=== PATIENT | female | born 1995 | race African-American/Black ===

== ENCOUNTER 2020-08-05 07:43 | Emergency (ER) | payer OTHER | END 2020-08-05 08:08 | disposition home or self-care (01) | LOC: CSHERS 07:43 | DX: J00 Acute nasopharyngitis [common cold] (principal); I10 Essential (primary) hypertension; E66.9 Obesity, unspecified | CPT/HCPCS: 99283 ==

== ENCOUNTER 2020-08-05 13:20 | Emergency (ER) | payer OTHER | END 2020-08-05 14:50 | disposition home or self-care (01) | LOC: CSHERS 13:20 | DX: R11.2 Nausea with vomiting, unspecified (principal); T36.3X5A Adverse effect of macrolides, initial encounter; E66.9 Obesity, unspecified; I10 Essential (primary) hypertension | CPT/HCPCS: 99283 ==

== ENCOUNTER 2020-11-27 19:01 | Emergency (ER) | payer OTHER ==
[2020-11-27] MEDS ORDERED: Metoclopramide HCl 10 MG/2 ML VIAL ONE (21:27)
[2020-11-27 21:57] LABS: #Eosinphils 0.1 10x3/uL (0.0-0.5); #Monocytes 0.4 10x3/uL (0.0-1.1); #Neutrophils 5.5 10x3/uL (1.5-8.4); %Basophils 0.4 % (0.0-2.0); %Eosinophils 0.6 % (0.0-6.0); %Lymphocytes 22.9 % (18.0-47.0); %Monocytes 5.4 % (0.0-10.0); %Neutrophils 70.3 % (40.0-75.0); Mean Corpuscular HGB CONC 30.1 g/dL (32.0-36.0); Mean Corpuscular Hemoglobin 22.2 pg (27.0-33.0); Mean Corpuscular Volume 73.6 fl (81.6-98.3); Mean Platelet Volume 10.2 fl (7.4-10.4); Platelet Count 432 10x3/uL (150-450); RBC Distribution Width 15.1 % (11.5-14.5); Red Blood Cell (RBC) Count 4.51 10x6/uL (3.90-5.03); White Blood Cell (WBC) Count 7.8 10x3/uL (3.5-10.5)
[2020-11-27 22:18] LABS: ALT (SGPT) 9 U/L (8-55); AST (SGOT) 15 U/L (5-34); Albumin 3.9 g/dL (3.5-5.0); Alkaline Phosphatase 63 U/L (40-110); Anion Gap 13 mmol/L (10-20); BUN (Urea Nitrogen) 11 mg/dL (7.0-18.7); Bilirubin, Total 0.3 mg/dL (0.2-1.2); Calc. Creatinine Clearance 0 mL/min (70-130); Carbon Dioxide 21 mmol/L (22-29); Chloride 104 mmol/L (98-107); Globulin 3.7 g/dL (2.4-3.5); Glucose 97 mg/dL (70-105); Lipase 28 U/L (8-78); Potassium 3.7 mmol/L (3.5-5.1); Protein, Total 7.6 g/dL (6.0-8.3); Sodium 134 mmol/L (136-145)
== END 2020-11-27 23:43 | disposition home or self-care (01) ==
LOC: CSHERS 19:01
DX: O21.0 Mild hyperemesis gravidarum (principal); O10.911 Unspecified pre-existing hypertension complicating pregnancy, first trimester; Z3A.01 Less than 8 weeks gestation of pregnancy
CPT/HCPCS: 80053; 83690; 85025; 99283; J2765

== ENCOUNTER 2021-03-13 16:55 | Emergency (ER) | payer OTHER ==
[2021-03-13] MEDS ORDERED: cefTRIAXone\\ROCEPHIN 500 MG VIAL ONE (17:26)
[2021-03-13] MEDS ORDERED: Ibuprofen 200 MG TAB ONE (17:27)
[2021-03-13] MEDS ORDERED: Sterile Water 10 ML ONE (17:28)
== END 2021-03-13 18:00 | disposition home or self-care (01) ==
LOC: CSHERS 16:55
DX: N89.8 Other specified noninflammatory disorders of vagina (principal); M79.641 Pain in right hand; D64.9 Anemia, unspecified
CPT/HCPCS: 96372; J0696

== ENCOUNTER 2021-05-10 12:15 | Emergency (ER) | payer OTHER ==
[2021-05-10 13:38] LABS: Bilirubin Neg (Negative); Blood, Urine Negative (Negative); Clarity Clear (Clear); Glucose, Urine (Dipstick) Normal (Negative); Ketone, Urine Negative (Negative); Leukocyte Negative (Negative); Nitrite Negative (Negative); Protein, Urine (Dipstick) Negative (Neg-Trace); Specific Gravity, Urine 1.015 (1.002-1.036); Urobilinogen Normal mg/dL (Less than 2)
[2021-05-10 13:39] LABS: Pregnancy Test - Urine (BHCG) Negative (Negative); Pregu Control Background? CLEAR/WHITE (CLR/WHITE); Pregu Control Bar Appear? YES (CONTROL BAR); Specific Gravity 1.015 (1.002-1.036)
[2021-05-10] MEDS ORDERED: metroNIDAZOLE 500 MG TAB ONE (13:58)
[2021-05-10] MEDS ORDERED: cefTRIAXone\\ROCEPHIN 500 MG VIAL ONE (13:58)
[2021-05-10] MEDS ORDERED: Lidocaine 1% (PF) 30 ML VIAL ONE (14:01)
[2021-05-10] MEDS ORDERED: Doxycycline 100 MG CAP PO SCH (14:15)
== END 2021-05-10 14:56 | disposition home or self-care (01) ==
LOC: CSHERS 12:15
DX: A54.9 Gonococcal infection, unspecified (principal); N76.0 Acute vaginitis; D64.9 Anemia, unspecified
CPT/HCPCS: 81003; 81025; 96372; 99284; J0696; J2001

== ENCOUNTER 2021-08-30 15:14 | Emergency (ER) | payer OTHER ==
[2021-08-30] MEDS ORDERED: Acetaminophen 500 MG TAB ONE (16:17)
== END 2021-08-30 18:08 | disposition home or self-care (01) ==
LOC: CSHERS 15:14
DX: T84.213A Breakdown (mechanical) of internal fixation device of bones of foot and toes, initial encounter (principal); S60.221A Contusion of right hand, initial encounter; D64.9 Anemia, unspecified; W01.198A Fall on same level from slipping, tripping and stumbling with subsequent striking against other object, initial encounter

== ENCOUNTER 2021-09-03 09:06 | Emergency (ER) | payer OTHER | END 2021-09-03 09:49 | disposition home or self-care (01) | LOC: CSHERS 09:06 | DX: S80.12XA Contusion of left lower leg, initial encounter (principal); W01.0XXA Fall on same level from slipping, tripping and stumbling without subsequent striking against object, initial encounter; Y92.512 Supermarket, store or market as the place of occurrence of the external cause; D64.9 Anemia, unspecified | CPT/HCPCS: 99283 ==

== ENCOUNTER 2021-12-09 07:39 | Emergency (ER) | payer OTHER ==
[2021-12-09 08:16] LABS: Bilirubin 1+ (Negative); Blood, Urine Negative (Negative); Clarity Slightly Cloudy (Clear); Glucose, Urine (Dipstick) Normal (Negative); Ketone, Urine Negative (Negative); Leukocyte Negative (Negative); Nitrite Negative (Negative); Protein, Urine (Dipstick) 30 mg/dl (Neg-Trace); Specific Gravity, Urine 1.025 (1.002-1.036)
[2021-12-09 08:18] LABS: Pregnancy Test - Urine (BHCG) Negative (Negative); Pregu Control Background? CLEAR/WHITE (CLR/WHITE); Pregu Control Bar Appear? YES (CONTROL BAR); Specific Gravity 1.025 (1.002-1.036)
[2021-12-09 08:36] LABS: Bacteria/HPF 2+ HPF (None Seen); Mucous/LPF 1+ LPF (<2+); RBC/HPF 0-3 HPF (0-3); WBC/HPF 0-3 HPF (0-3)
[2021-12-09 09:20] LABS: #Eosinphils 0.4 10x3/uL (0.0-0.5); #Monocytes 0.3 10x3/uL (0.0-1.1); #Neutrophils 2.7 10x3/uL (1.5-8.4); %Basophils 0.6 % (0.0-2.0); %Eosinophils 9.1 % (0.0-6.0); %Lymphocytes 25.9 % (18.0-47.0); %Monocytes 5.9 % (0.0-10.0); %Neutrophils 58.3 % (40.0-75.0); Hemoglobin 9.9 g/dL (12.0-15.5); Mean Corpuscular HGB CONC 30.7 g/dL (32.0-36.0); Mean Corpuscular Hemoglobin 23.1 pg (27.0-33.0); Mean Corpuscular Volume 75.5 fl (81.6-98.3); Mean Platelet Volume 9.7 fl (7.4-10.4); Platelet Count 420 10x3/uL (150-450); RBC Distribution Width 14.8 % (11.5-14.5); Red Blood Cell (RBC) Count 4.28 10x6/uL (3.90-5.03); White Blood Cell (WBC) Count 4.7 10x3/uL (3.5-10.5)
[2021-12-09] MEDS ORDERED: Lidocaine 1% (PF) 30 ML VIAL ONE (09:27)
[2021-12-09] MEDS ORDERED: cefTRIAXone\\ROCEPHIN 1 GM VIAL ONE (09:27)
[2021-12-09 09:43] LABS: ALT (SGPT) 8 U/L (8-55); AST (SGOT) 14 U/L (5-34); Albumin 3.6 g/dL (3.5-5.0); Alkaline Phosphatase 65 U/L (40-110); Anion Gap 10 mmol/L (10-20); BUN (Urea Nitrogen) 15 mg/dL (7.0-18.7); Bilirubin, Total 0.3 mg/dL (0.2-1.2); Calc. Creatinine Clearance 0 mL/min (70-130); Calcium 8.8 mg/dL (7.8-10.44); Carbon Dioxide 25 mmol/L (22-29); Chloride 107 mmol/L (98-107); Estimated GFR 111; Globulin 3.3 g/dL (2.4-3.5); Glucose 104 mg/dL (70-105); Lipase 33 U/L (8-78); Potassium 3.7 mmol/L (3.5-5.1); Protein, Total 6.9 g/dL (6.0-8.3); Sodium 138 mmol/L (136-145)
[2021-12-10 17:11] LABS: Chlamydia by PCR Not Detected (NotDetected); GC by PCR Not Detected (NotDetected)
== END 2021-12-09 09:35 | disposition home or self-care (01) ==
LOC: CSHERS 07:39
DX: N72 Inflammatory disease of cervix uteri (principal)
CPT/HCPCS: 36415; 80053; 81003; 81015; 81025; 83690; 85025; 87480; 87491; 87510; 87591; 87660; 96372; 99283; J0696; J2001

== ENCOUNTER 2022-03-22 14:14 | Emergency (ER) | payer OTHER | END 2022-03-22 14:35 | disposition home or self-care (01) | LOC: CSHERS 14:14 | DX: R11.2 Nausea with vomiting, unspecified (principal); F19.10 Other psychoactive substance abuse, uncomplicated | CPT/HCPCS: 99283 ==

== ENCOUNTER 2022-05-01 01:17 | Emergency (ER) | payer OTHER ==
[2022-05-01 02:03] LABS: Bilirubin Neg (Negative); Blood, Urine Negative (Negative); Clarity Clear (Clear); Glucose, Urine (Dipstick) Normal (Negative); Ketone, Urine Negative (Negative); Leukocyte Negative (Negative); Nitrite Negative (Negative); Pregu Control Background? CLEAR/WHITE (CLR/WHITE); Pregu Control Bar Appear? YES (CONTROL BAR); Protein, Urine (Dipstick) Negative (Neg-Trace); Specific Gravity 1.015 (1.002-1.036); Specific Gravity, Urine 1.015 (1.005-1.030); pH, Urine 6.5 (5.0-9.0)
[2022-05-01 02:05] LABS: Pregnancy Test - Urine (BHCG) Negative (Negative)
[2022-05-01] MEDS ORDERED: Ketorolac Tromethamine 30 MG/ML VIAL ONE (02:40)
[2022-05-01 03:16] LABS: #Basophils 0.1 10x3/uL (0.0-0.2); #Eosinphils 0.1 10x3/uL (0.0-0.5); #Monocytes 0.5 10x3/uL (0.0-1.1); #Neutrophils 4.3 10x3/uL (1.5-8.4); %Basophils 0.8 % (0.0-2.0); %Eosinophils 1.5 % (0.0-6.0); %Lymphocytes 23.6 % (18.0-47.0); %Monocytes 7.1 % (0.0-10.0); %Neutrophils 66.7 % (40.0-75.0); Hemoglobin 9.9 g/dL (12.0-15.5); Mean Corpuscular HGB CONC 31.7 g/dL (32.0-36.0); Mean Corpuscular Volume 75.7 fl (81.6-98.3); Mean Platelet Volume 9.8 fl (7.4-10.4); Platelet Count 445 10x3/uL (150-450); RBC Distribution Width 14.6 % (11.5-14.5); Red Blood Cell (RBC) Count 4.12 10x6/uL (3.90-5.03); White Blood Cell (WBC) Count 6.5 10x3/uL (3.5-10.5)
[2022-05-01 03:34] LABS: ALT (SGPT) 9 U/L (8-55); AST (SGOT) 10 U/L (5-34); Albumin 3.8 g/dL (3.5-5.0); Alkaline Phosphatase 60 U/L (40-110); Anion Gap 12 mmol/L (10-20); BUN (Urea Nitrogen) 16 mg/dL (7.0-18.7); Bilirubin, Total 0.2 mg/dL (0.2-1.2); Calc. Creatinine Clearance 0 mL/min (70-130); Calcium 9.3 mg/dL (7.8-10.44); Carbon Dioxide 24 mmol/L (22-29); Chloride 107 mmol/L (98-107); Estimated GFR 103; Globulin 3.4 g/dL (2.4-3.5); Glucose 108 mg/dL (70-105); Lipase 46 U/L (8-78); Potassium 4.4 mmol/L (3.5-5.1); Protein, Total 7.2 g/dL (6.0-8.3); Sodium 139 mmol/L (136-145)
== END 2022-05-01 03:53 | disposition home or self-care (01) ==
LOC: CSHERS 01:17
DX: R10.9 Unspecified abdominal pain (principal)
CPT/HCPCS: 80053; 81003; 81025; 83690; 85025; 96372; 99284; J1885

== ENCOUNTER 2022-07-09 12:01 | Emergency (ER) | payer OTHER ==
[2022-07-09 12:27] LABS: Bilirubin Neg (Negative); Blood, Urine 50 (Negative); Clarity Slightly Cloudy (Clear); Glucose, Urine (Dipstick) Normal (Negative); Ketone, Urine Negative (Negative); Leukocyte 100 (Negative); Nitrite Negative (Negative); Protein, Urine (Dipstick) 30 mg/dl (Neg-Trace); Urobilinogen Normal mg/dL (Less than 2)
[2022-07-09 12:29] LABS: Pregnancy Test - Urine (BHCG) Negative (Negative); Pregu Control Background? CLEAR/WHITE (CLR/WHITE); Pregu Control Bar Appear? YES (CONTROL BAR)
[2022-07-09 12:46] LABS: Bacteria/HPF 2+ HPF (None Seen); Squamous Epithelial 0-3 HPF (0-3); WBC/HPF 21-50 HPF (0-3)
[2022-07-09 12:48] LABS: Mucous/LPF 2+ LPF (<2+)
[2022-07-09] MEDS ORDERED: cefTRIAXone (ROCEPHIN) 500 MG VIAL ONE (13:18)
[2022-07-09 22:14] LABS: Chlamydia by PCR, Vaginal Swab Not Detected (NotDetected); GC by PCR, Vaginal Swab Not Detected (NotDetected); Tric.vaginalis PCR,Vaginal Sw DETECTED (NotDetected)
== END 2022-07-09 13:23 | disposition home or self-care (01) ==
LOC: CSHERS 12:01
DX: N30.00 Acute cystitis without hematuria (principal); R30.0 Dysuria
CPT/HCPCS: 81003; 81015; 81025; 87491; 87591; 87661; 96372; 99284; J0696

== ENCOUNTER 2023-01-04 11:13 | Emergency (ER) | payer OTHER ==
[2023-01-04 12:00] LABS: #Eosinphils 0.1 10x3/uL (0.0-0.5); #Monocytes 0.3 10x3/uL (0.0-1.1); #Neutrophils 2.8 10x3/uL (1.5-8.4); %Basophils 0.6 % (0.0-2.0); %Eosinophils 2.6 % (0.0-6.0); %Lymphocytes 29.7 % (18.0-47.0); %Monocytes 6.2 % (0.0-10.0); %Neutrophils 60.7 % (40.0-75.0); Hematocrit 34.8 % (34.9-44.5); Hemoglobin 10.8 g/dL (12.0-15.5); Mean Corpuscular Hemoglobin 24.7 pg (27.0-33.0); Mean Corpuscular Volume 79.5 fl (81.6-98.3); Mean Platelet Volume 10.3 fl (7.4-10.4); Platelet Count 450 10x3/uL (150-450); RBC Distribution Width 15.1 % (11.5-14.5); Red Blood Cell (RBC) Count 4.38 10x6/uL (3.90-5.03); White Blood Cell (WBC) Count 4.7 10x3/uL (3.5-10.5)
[2023-01-04 12:10] LABS: BHCG - Serum POSITIVE (NEGATIVE); Pregs Control Background? CLEAR/WHITE (CLR/WHITE); Pregs Control Bar Appear? YES (CONTROL BAR)
[2023-01-04 12:17] LABS: ALT (SGPT) 10 U/L (8-55); AST (SGOT) 15 U/L (5-34); Albumin 3.7 g/dL (3.5-5.0); Alkaline Phosphatase 55 U/L (40-110); Anion Gap 10 mmol/L (10-20); BUN (Urea Nitrogen) 8 mg/dL (7.0-18.7); Bilirubin, Total 0.3 mg/dL (0.2-1.2); Calc. Creatinine Clearance 0 mL/min (70-130); Carbon Dioxide 24 mmol/L (22-29); Chloride 106 mmol/L (98-107); Estimated GFR 105; Globulin 3.3 g/dL (2.4-3.5); Glucose 102 mg/dL (70-105); Lipase 33 U/L (8-78); Potassium 3.3 mmol/L (3.5-5.1); Sodium 137 mmol/L (136-145)
== END 2023-01-04 13:54 | disposition home or self-care (01) ==
LOC: CSHERS 11:13
DX: O99.891 Other specified diseases and conditions complicating pregnancy (principal); R10.9 Unspecified abdominal pain; Z3A.01 Less than 8 weeks gestation of pregnancy
CPT/HCPCS: 36415; 76856; 80053; 83690; 84702; 84703; 85025

== ENCOUNTER 2023-08-29 08:54 | Inpatient (IN) | payer OTHER ==
[2023-08-29] MEDS ORDERED: Oxytocin 30 units/NS 500 ML 500 ML IV SCH (10:42)
[2023-08-29] MEDS ORDERED: Promethazine HCl 25 MG/ML VIAL IM PRN ×3 (10:42→18:33)
[2023-08-29] MEDS ORDERED: Diphenoxylate HCl/Atropine Tablet PO PRN (10:42)
[2023-08-29] MEDS ORDERED: Tranexamic Acid 1,000 MG/10 ML VIAL IVP PRN (10:42)
[2023-08-29] MEDS ORDERED: hydrALAZINE 20 MG/ML VIAL SLOW IVP PRN ×2 (10:42→18:33)
[2023-08-29] MEDS ORDERED: Famotidine/PF 20 mg/2ml Vial SLOW IVP PRN (10:42)
[2023-08-29] MEDS ORDERED: Ondansetron PF 4 MG/2 ML Vial IVP PRN ×4 (10:42→18:33)
[2023-08-29] MEDS ORDERED: Bicitra 30 ML UDCUP PO PRN (10:42)
[2023-08-29] MEDS ORDERED: Misoprostol 200 MCG TAB PR PRN (10:42)
[2023-08-29] MEDS ORDERED: Carboprost 250 MCG/ML AMP IM PRN (10:42)
[2023-08-29 10:44] VITALS: BMI 53.8
[2023-08-29] MEDS: Lactated Ringer's 1,000 ML IV SCH (11:06)
[2023-08-29 11:29] LABS: Hematocrit 34.6 % (34.9-44.5); Hemoglobin 11.2 g/dL (12.0-15.5); Mean Corpuscular HGB CONC 32.4 g/dL (32.0-36.0); Mean Corpuscular Hemoglobin 26.5 pg (27.0-33.0); Mean Corpuscular Volume 81.8 fl (81.6-98.3); Mean Platelet Volume 10.5 fl (7.4-10.4); Platelet Count 320 10x3/uL (150-450); RBC Distribution Width 18.5 % (11.5-14.5); Red Blood Cell (RBC) Count 4.23 10x6/uL (3.90-5.03); White Blood Cell (WBC) Count 7.8 10x3/uL (3.5-10.5)
[2023-08-29 12:00] LABS: HBsAg Index 0.19 S/CO (0-0.99); Hep B Surf Ag - L&D Non-Reactive S/CO (NonReactive)
[2023-08-29 12:01] LABS: Syphilis Antibody Nonreactive (Nonreactive); Syphilis Antibody Index 0.09 S/CO (<1.00 Non-Reactive)
[2023-08-29] MEDS ORDERED: Naloxone HCl 0.4 mg/ml Vial IVP PRN ×2 (13:44)
[2023-08-29] MEDS ORDERED: Ketorolac Tromethamine 30 MG (1 mL) VIAL IVP PRN (13:44)
[2023-08-29] MEDS ORDERED: Meperidine HCl/PF 25 MG (1 mL) VIAL SLOW IVP PRN (13:44)
[2023-08-29] MEDS ORDERED: fentaNYL 50 mcg/mL 1 mL Vial SLOW IVP PRN (13:44)
[2023-08-29] MEDS ORDERED: Moisturizing Cream (Eucerin) 113 GM JAR TOP PRN (13:44)
[2023-08-29] MEDS ORDERED: Morphine 4 MG/ML VIAL SLOW IVP PRN (13:44)
[2023-08-29] MEDS ORDERED: Naloxone HCl 0.4 mg/ml Vial IV PRN (13:44)
[2023-08-29] MEDS ORDERED: diphenhydrAMINE 50 MG/ML VIAL IVP PRN (13:44)
[2023-08-29] MEDS ORDERED: Communication Order-Pharmacy FS SCH (13:45)
[2023-08-29] MEDS ORDERED: Ketorolac Tromethamine 30 MG (1 mL) VIAL IVP SCH (13:45)
[2023-08-29] MEDS: diphenhydrAMINE 50 MG/ML VIAL ONE (14:53)
[2023-08-29] MEDS ORDERED: Lanolin Ointment 7 GM TUBE TOP PRN (18:33)
[2023-08-29] MEDS ORDERED: diphenhydrAMINE 25 MG CAP PO PRN (18:33)
[2023-08-29] MEDS ORDERED: Bisacodyl 10 MG SUPP PR PRN (18:33)
[2023-08-29] MEDS: Ondansetron PF 4 MG/2 ML Vial ONE ×2 (18:40→18:42)
[2023-08-29] MEDS: Dexamethasone 4 mg/ml Vial ONE (18:40)
[2023-08-29] MEDS: CEFAZOLIN 3 GM, Admixture Fee 1 EACH in Sodium Chloride 0.9% 100 ML IVPB SCH (18:40)
[2023-08-29] MEDS: Phytonadione Neonatal 1 MG/0.5 ML AMP ONE (18:40)
[2023-08-29] MEDS: Morphine PF 10 MG/10 ML VIAL ONE (18:40)
[2023-08-29] MEDS: Oxytocin 10 UNITS/ML VIAL ONE ×2 (18:40→18:42)
[2023-08-29] MEDS: Erythromycin Base 0.5% Oint 1 GM TUBE ONE (18:40)
[2023-08-29] MEDS: PHENYLEPHRINE-NS 100 MCG/ML 10 ML SYRINGE ONE ×2 (18:41→18:42)
[2023-08-29] MEDS: Hepatitis B Vaccine 10 MCG/0.5 ML SYR ONE (18:41)
[2023-08-29] MEDS: Glycopyrrolate 0.2 MG/ML 5 ML SYRINGE ONE (18:42)
[2023-08-29] MEDS: ePHEDrine Sulfate 50 MG/10 ML VIAL ONE (18:42)
[2023-08-29] MEDS: Carboprost 250 MCG/ML AMP ONE (18:42)
[2023-08-29] MEDS: Boostrix 0.5 ML (Tdap) VIAL (>/=7 yrs of age) IM ONE (18:43)
[2023-08-29] MEDS: Ketorolac Tromethamine 30 MG (1 mL) VIAL IVP SCH (19:03)
[2023-08-29] MEDS: Docusate 100 MG CAP PO SCH (21:07)
[2023-08-30] MEDS ORDERED: Meperidine HCl/PF 25 MG (1 mL) VIAL IM PRN (01:45)
[2023-08-30 04:01] LABS: Hematocrit 31.7 % (34.9-44.5); Hemoglobin 10.3 g/dL (12.0-15.5); Mean Corpuscular HGB CONC 32.5 g/dL (32.0-36.0); Mean Corpuscular Hemoglobin 26.6 pg (27.0-33.0); Mean Corpuscular Volume 81.9 fl (81.6-98.3); Mean Platelet Volume 9.9 fl (7.4-10.4); Platelet Count 305 10x3/uL (150-450); Red Blood Cell (RBC) Count 3.87 10x6/uL (3.90-5.03); White Blood Cell (WBC) Count 12.2 10x3/uL (3.5-10.5)
[2023-08-30] MEDS: Ferrous Sulfate 325 MG TAB PO SCH (04:28)
[2023-08-30] MEDS: HYDROcodone/Acetaminophen 5/325 mg Tablet PO PRN (08:15)
[2023-08-30] MEDS: Prenatal Vitamin 1 TAB PO SCH (08:15)
[2023-08-30] MEDS: Simethicone Chewable 80 MG TAB PO PRN (08:15)
[2023-08-30] MEDS: Ibuprofen 800 MG TAB PO SCH (13:25)
[2023-08-31] MEDS: HYDROcodone/Acetaminophen 5/325 mg Tablet PO PRN (08:36)
[2023-09-01 08:56] VITALS: TEMP 97.2
[2023-09-01 09:42] VITALS: BP 133/79
== END 2023-09-01 10:10 | disposition home or self-care (01) | DRG 788 ==
LOC: CSHLD 08:54 → CSHPP 15:20
PROVIDERS: ADMIT Family Medicine; ATTEND Family Medicine
PROC: 10D00Z1 Extraction of Products of Conception, Low, Open Approach (ICD-10-PCS; principal; 2023-08-29)
DX: O34.211 Maternal care for low transverse scar from previous cesarean delivery (principal); Z3A.39 39 weeks gestation of pregnancy; Z37.0 Single live birth; O99.214 Obesity complicating childbirth; E66.01 Morbid (severe) obesity due to excess calories; Z79.82 Long term (current) use of aspirin
CPT/HCPCS: 51702; 85027; 86780; 86850; 86900; 86901; 87340; J1100; J1200; J1885; J2274; J2405; J2590; J3490; J7120